=== PATIENT | female | born 1945 | race Hispanic/Latino ===

== ENCOUNTER 2020-01-06 12:56 | Inpatient (IN) | payer OTHER, MEDICARE ==
[~2020-01-06] VITALS: Ht 160 cm; Wt 85.3 kg
[2020-01-06] MEDS ORDERED: ACETAMINOPHEN 325 MG TAB ONE (16:15)
[2020-01-06] MEDS ORDERED: ALBUTEROL INHALER 90MCG/INH IH ONE (19:30)
[2020-01-06] MEDS ORDERED: ACETAMINOPHEN 325 MG TAB PO PRN ×2 (20:30)
[2020-01-06] MEDS ORDERED: ERGOCALCIFEROL (VITAMIN D2) 50,000 UNIT CAPSULE PO ONE (20:30)
[2020-01-06] MEDS ORDERED: DOXYCYCLINE 100MG+NS 250ML IV SCH (20:30)
[2020-01-06] MEDS ORDERED: GUAIFENESIN-DM 200/20 MG 10 ML PO PRN (20:30)
[2020-01-06] MEDS ORDERED: ONDANSETRON HCL 4 MG/2 ML VIAL IV PRN (20:30)
[2020-01-06] MEDS ORDERED: DOXYCYCLINE HYCLATE 100 MG TABLET PO SCH (21:00)
[2020-01-06] MEDS ORDERED: CEFTRIAXONE SODIUM 1 GM IVP SCH (21:00)
[2020-01-06] MEDS ORDERED: POTASSIUM CHLORIDE 20MEQ/100ML 100 ML IV PRN (21:45)
[2020-01-06] MEDS ORDERED: LIDOCAINE HCL-MPF 1% 2ML VIAL IV PRN (21:45)
[2020-01-06] MEDS ORDERED: POTASSIUM CHLORIDE 20 MEQ ERTAB PO PRN (21:45)
[2020-01-06] MEDS ORDERED: POTASSIUM CHLORIDE 10% ELIXIR 20 MEQ/15 ML UDCUP PO PRN (21:45)
[2020-01-06] MEDS ORDERED: DOXYCYCLINE HYCLATE 100 MG TABLET PO ONE (22:27)
[2020-01-06] MEDS ORDERED: ERGOCALCIFEROL (VITAMIN D2) 50,000 UNIT CAPSULE ONE (22:27)
[2020-01-06] MEDS ORDERED: CEFTRIAXONE SODIUM 1 GM ONE (22:27)
[2020-01-06] MEDS ORDERED: FAMOTIDINE/PF 20 MG/2 ML VIAL IV ONE (22:28)
[2020-01-07] MEDS ORDERED: DOXYCYCLINE 100MG+NS 250ML 250 ML IV SCH (06:00)
[2020-01-07] MEDS ORDERED: LOPERAMIDE HCL 2 MG CAP PO ONE (08:38)
[2020-01-07] MEDS ORDERED: FAMOTIDINE/PF 20 MG/2 ML VIAL IV SCH (09:00)
[2020-01-07] MEDS ORDERED: ZINC SULFATE 220 CAPSULE PO SCH (09:00)
[2020-01-07] MEDS ORDERED: ASCORBIC ACID 500 MG TAB PO SCH (09:00)
[2020-01-07] MEDS ORDERED: ZINC SULFATE 220 CAPSULE ONE (10:41)
[2020-01-07] MEDS ORDERED: ASCORBIC ACID 500 MG TAB ONE (10:41)
[2020-01-07] MEDS ORDERED: FAMOTIDINE/PF 20 MG/2 ML VIAL IV ONE (10:42)
[2020-01-07] MEDS ORDERED: DOXYCYCLINE HYCLATE 100 MG TABLET PO SCH (15:06)
[2020-01-07] MEDS ORDERED: DOXYCYCLINE HYCLATE 100 MG TABLET PO ONE (15:44)
--- NOTE | 2020-01-07 18:37 | NUR ---
INITIAL SW spoke with patient's sister, Jose Tomas, [phone]. Patient lives with son, Orlando You, [phone] and 12 year old granddaughter. She has no home services or DME as per sister. Patient is independent and drives. PCP is Dr. Mcintosh. Pharmacy is [facility] in [place]. DCP is home. Addendum: 01/07/20 at 1839 by DANG CARDOSO SS Amended: Links added.
[2020-01-07] MEDS ORDERED: CEFTRIAXONE SODIUM 1 GM ONE (22:38)
[2020-01-08] MEDS ORDERED: ZINC SULFATE 220 CAPSULE ONE (09:32)
[2020-01-08] MEDS ORDERED: ASCORBIC ACID 500 MG TAB ONE (09:32)
[2020-01-08] MEDS ORDERED: FAMOTIDINE/PF 20 MG/2 ML VIAL IV ONE (09:33)
[2020-01-08] MEDS ORDERED: CEFTRIAXONE SODIUM 1 GM ONE (09:33)
[2020-01-08] MEDS ORDERED: DOXYCYCLINE HYCLATE 100 MG TABLET PO ONE (10:50)
[2020-01-08] MEDS ORDERED: DIPHENOXYLATE HCL/ATROPINE 2.5/0.025 MG TAB PO ONE (14:25)
[2020-01-08] MEDS ORDERED: LOPERAMIDE HCL 2 MG CAP PO ONE (14:26)
[2020-01-08] MEDS ORDERED: POTASSIUM CHLORIDE 20 MEQ ERTAB PO ONE ×2 (15:20→17:34)
== END 2020-01-08 18:23 | disposition home or self-care (01) | DRG 177 ==
LOC: EDH 12:56 → EDHIP 20:28
PROVIDERS: ADMIT Hospitalist; ATTEND Hospitalist
DX: U07.1 COVID-19 (principal); J12.89 Other viral pneumonia; E87.6 Hypokalemia; E78.00 Pure hypercholesterolemia, unspecified